=== PATIENT | female | born 1980 | race Asian ===

== ENCOUNTER 2016-06-21 12:30 | Inpatient (IN) | payer SELFPAY ==
[~2016-06-21] VITALS: Ht 160 cm; Wt 86.2 kg
[2016-06-21] MEDS ORDERED: MORPHINE PRES FREE 10 MG/10 ML AMP IV ONE (12:42)
[2016-06-21] MEDS ORDERED: LACTATED RINGERS 1,000 ML IV SCH (12:43)
[2016-06-21] MEDS ORDERED: CITRIC ACID/SODIUM CITRATE 30 ML UDC PO SCH (12:45)
[2016-06-21] MEDS ORDERED: CARBOPROST 250 MCG/ML AMP IM ONE ×2 (13:30→14:23)
[2016-06-21] MEDS ORDERED: ONDANSETRON 4 MG/2 ML VIAL IVP ONE (13:30)
[2016-06-21] MEDS ORDERED: BUPIVACAINE-MPF 0.75% 10 ML VIAL INJ ONE (13:30)
[2016-06-21] MEDS ORDERED: oxyCODONE/APAP 5/325 MG 1 TAB TAB PO PRN (13:40)
[2016-06-21] MEDS ORDERED: TEMAZEPAM 15 MG CAP PO PRN (13:40)
[2016-06-21] MEDS ORDERED: TRIMETHOBENZAMIDE 200 MG/2 ML SYR IM PRN (13:40)
[2016-06-21] MEDS ORDERED: METHYLERGONOVINE 0.2 MG/ML AMP IM PRN (13:40)
[2016-06-21] MEDS ORDERED: IBUPROFEN 800 MG TAB PO PRN (13:40)
[2016-06-21] MEDS ORDERED: MEASLES, MUMPS, AND RUBELLA 1 VIAL SQVAC PRN (13:40)
[2016-06-21] MEDS ORDERED: OXYTOCIN 20 UNITS/LR PREMIX 1,000 ML IV SCH (14:00)
[2016-06-21] MEDS ORDERED: NALOXONE 0.4 MG/ML VIAL IVP PRN ×2 (14:00)
[2016-06-21] MEDS ORDERED: KETOROLAC 30 MG/ML VIAL IVP PRN (14:00)
[2016-06-21] MEDS ORDERED: diphenhydrAMINE 50 MG/ML VIAL IVP PRN (14:00)
[2016-06-21] MEDS ORDERED: METHYLERGONOVINE 0.2 MG/ML AMP ONE (14:02)
[2016-06-21] MEDS ORDERED: OXYTOCIN 20 UNITS/LR PREMIX 1,000 ML IV ONE (15:25)
[2016-06-21] MEDS: DOCUSATE SOD/SENNA 50/8.6 MG 1 TAB PO SCH (21:00)
[2016-06-21] MEDS: SIMETHICONE 80 MG TAB.CHEW PO SCH (21:00)
[2016-06-22] MEDS: OXYTOCIN 20 UNITS/LR PREMIX 1,000 ML IV SCH ×2 (01:22→08:17)
[2016-06-22] MEDS ORDERED: FERROUS GLUCONATE 324 MG TAB PO SCH (08:00)
[2016-06-22] MEDS: SIMETHICONE 80 MG TAB.CHEW PO SCH ×4 (08:11→21:04)
[2016-06-22] MEDS: HYDROcodone/APAP 5/325 MG 1 TAB TAB PO PRN (08:11)
[2016-06-22] MEDS: FERROUS GLUCONATE 324 MG TAB PO SCH ×3 (08:17→17:57)
--- NOTE | 2016-06-22 10:03 | NUR ---
AWAKE AND ALERT RESPONSIVE TOLERATED INCENTIVE SPIROMETRY (IS) THERAPY WELL WITHOUT INCIDENT ENCOURAGED PATIENT TO USE IS EVERY 2 HOURS WHILE;E AWAKE
--- NOTE | 2016-06-22 11:14 | NUR ---
PATIENT HAS BEEN SCREENED AND CATEGORIZED LOW NUTRITION RISK. PATIENT WILL BE SEEN WITHIN 7 DAYS OF ADMISSION. 06/28/[address]
[2016-06-22] MEDS: DOCUSATE SOD/SENNA 50/8.6 MG 1 TAB PO SCH (21:03)
[2016-06-23] MEDS: FERROUS GLUCONATE 324 MG TAB PO SCH ×3 (08:57→18:05)
[2016-06-23] MEDS: SIMETHICONE 80 MG TAB.CHEW PO SCH ×3 (08:57→18:05)
[2016-06-23] MEDS: DOCUSATE SOD/SENNA 50/8.6 MG 1 TAB PO SCH (20:00)
[2016-06-23] MEDS: HYDROcodone/APAP 5/325 MG 1 TAB TAB PO PRN (20:01)
== END 2016-06-24 12:30 | disposition home or self-care (01) | DRG 765 ==
LOC: MLD 12:36 → MFCC 17:25
PROVIDERS: ADMIT Obstetrics & Gynecology; ATTEND Obstetrics & Gynecology
PROC: 30233N1 Transfusion of Nonautologous Red Blood Cells into Peripheral Vein, Percutaneous Approach (ICD-10-PCS; 2016-06-21)
PROC: 30233K1 Transfusion of Nonautologous Frozen Plasma into Peripheral Vein, Percutaneous Approach (ICD-10-PCS; 2016-06-21)
PROC: 10D00Z1 Extraction of Products of Conception, Low, Open Approach (ICD-10-PCS; principal; 2016-06-21 13:00)
DX: O69.81X2 Labor and delivery complicated by cord around neck, without compression, fetus 2 (principal); O30.043 Twin pregnancy, dichorionic/diamniotic, third trimester; Z37.2 Twins, both liveborn; O09.513 Supervision of elderly primigravida, third trimester; O09.813 Supervision of pregnancy resulting from assisted reproductive technology, third trimester; Z3A.36 36 weeks gestation of pregnancy; Z86.19 Personal history of other infectious and parasitic diseases